=== PATIENT | female | born 1985 | race Two or more races ===

== ENCOUNTER 2024-11-19 10:11 | Emergency (ER) | payer OTHER ==
[~2024-11-19] VITALS: Ht 160 cm; Wt 95.0 kg
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
[2024-11-19] MEDS: ACETAMINOPHEN 500 MG TAB or CAP PO ONE (11:31)
[2024-11-19] MEDS ORDERED: IBUP-1456 PO (11:35)
[2024-11-19] MEDS ORDERED: METH-1182 PO (11:35)
[2024-11-19 11:40] VITALS: BP 122/83; PULSE 84; RESP 18; TEMP 98.3; O2SAT 99
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
== END 2024-11-19 11:44 | disposition home or self-care (01) ==
LOC: ER 10:11
DX: S46.912A Strain of unspecified muscle, fascia and tendon at shoulder and upper arm level, left arm, initial encounter (principal); Z79.1 Long term (current) use of non-steroidal anti-inflammatories (NSAID); V43.52XA Car driver injured in collision with other type car in traffic accident, initial encounter; Y93.89 Activity, other specified; Y92.488 Other paved roadways as the place of occurrence of the external cause; Y99.8 Other external cause status
CPT/HCPCS: 73030